=== PATIENT | female | born 1985 | race Caucasian/White ===

== ENCOUNTER 2018-10-26 12:29 | Emergency (ER) | payer SELFPAY ==
[2018-10-26 13:03] VITALS: RESP 18; O2SAT 99
[2018-10-26 13:06] LABS: HCG,QUALITATIVE URINE NEGATIVE (NEGATIVE)
[2018-10-26] MEDS ORDERED: Sodium Chloride 0.9% 1,000 ML IV ONE (13:10)
[2018-10-26 13:11] LABS: SQUAMOUS EPITHIAL 16 /hpf (0-5); URINE BACTERIA RARE (<OCC); URINE BILIRUBIN NEGATIVE (NEGATIVE); URINE BLOOD 1+ (NEGATIVE); URINE CLARITY Hazy (Clear); URINE COLOR Yellow (YELLOW); URINE GLUCOSE (UA) NORMAL (Normal); URINE LEUKOCYTE ESTERASE NEG Leu/uL (Negative); URINE PROTEIN 1+ mg/dL (NEGATIVE); URINE UROBILINOGEN NORMAL mg/dL (0.2-1.0)
[2018-10-26 13:28] LABS: BASO # 0.1 K/uL (0.0-0.2); BASO % 0.6 % (0.0-2.0); EOS % 0.1 % (0.0-4.0); HEMOGLOBIN 12.5 g/dL (11.0-16.0); LYMPH # 1.6 K/uL (1.0-4.3); LYMPH % 13.5 % (20.0-40.0); MEAN CORPUSCULAR HEMOGLOBIN 29.3 pg (27.0-31.0); MEAN CORPUSCULAR HGB CONC 33.3 g/dL (33.0-37.0); MEAN PLATELET VOLUME 10.3 fL (7.2-11.7); MONO # 0.4 K/uL (0.0-0.8); NEUT # 9.9 K/uL (1.8-7.0); NEUT % 82.8 % (50.0-75.0); RBC 4.25 Mil/uL (3.80-5.20); RED CELL DISTRIBUTION WIDTH 13.3 % (11.5-14.5)
[2018-10-26] MEDS ORDERED: Sodium Chloride 0.9% 1,000 ML ONE (13:28)
[2018-10-26 13:34] LABS: HCG,QUALITATIVE URINE NEGATIVE (NEGATIVE)
[2018-10-26 13:40] LABS: ALB/GLOB RATIO 1.5 (1.0-2.1); ALBUMIN 4.8 g/dL (3.5-5.0); ALT/SGPT 22 U/L (9-52); AST/SGOT 22 U/L (14-36); BLOOD UREA NITROGEN 15 mg/dL (7-17); CALCIUM 9.3 mg/dl (8.6-10.4); GFR NON-AFRICAN AMERICAN > 60; LIPASE 27 U/L (23-300)
[2018-10-26 13:41] LABS: SQUAMOUS EPITHIAL 16 /hpf (0-5); URINE BILIRUBIN NEGATIVE (NEGATIVE); URINE BLOOD NEGATIVE (NEGATIVE); URINE CLARITY Hazy (Clear); URINE COLOR Yellow (YELLOW); URINE GLUCOSE (UA) NORMAL (Normal); URINE LEUKOCYTE ESTERASE NEG Leu/uL (Negative); URINE PROTEIN 1+ mg/dL (NEGATIVE); URINE UROBILINOGEN NORMAL mg/dL (0.2-1.0)
--- NOTE | 2018-10-26 13:50 | US ---
HISTORY: Pain COMPARISON: None available. TECHNIQUE: Sonographic evaluation of the abdomen. FINDINGS: LIVER: Measures 17.4 cm in sagittal dimension. Echogenic liver may be seen in setting of hepatic parenchymal disease or fatty infiltration. No focal hepatic mass identified. The main portal vein appears patent with normal directional flow. No intrahepatic bile duct dilatation. GALLBLADDER: No gallstones. No gallbladder wall thickening. Negative sonographic Zamora's sign as assessed by the ramp supervisor. COMMON BILE DUCT: Measures 2 mm. PANCREAS: Not well visualized. RIGHT KIDNEY: Measures 10.5 x 4.0 x 4.9cm. No obstructing calculus or hydronephrosis identified. LEFT KIDNEY: Measures 10.4 x 4.2 x 5.0cm. No obstructing calculus or hydronephrosis identified. SPLEEN: Measures approximately 8.5 cm. AORTA: Limited views appear unremarkable. IVC: Limited views appear unremarkable. OTHER FINDINGS: None. IMPRESSION: Echogenic liver may be seen in setting of hepatic parenchymal disease or fatty infiltration.
--- NOTE | 2018-10-26 14:04 | C.PDOC ---
History Of Present Illness 33 year old female presents to the ED for evaluation of nausea, vomiting and upper abdominal pain which began around one week ago. Patient denies fever, chills. Time Seen by Provider: 10/26/18 12:42 Chief Complaint (Nursing): Abdominal Pain History Per: Patient History/Exam Limitations: no limitations Onset/Duration Of Symptoms: Days (one week ) Current Symptoms Are (Timing): Still Present Location Of Pain/Discomfort: Other (upper abdomen ) Radiation Of Pain To:: None Quality Of Discomfort: "Pain" Associated Symptoms: Nausea, Vomiting. denies: Fever, Chills Additional History Per: Patient Abnormal Vaginal Bleeding: No Past Medical History Reviewed: Historical Data, Nursing Documentation, Vital Signs Vital Signs: Last Vital Signs Temp 98.0 F 10/26/18 12:56 Pulse 102 H 10/26/18 12:56 Resp 18 10/26/18 12:56 BP 117/78 10/26/18 12:56 Pulse Ox 99 10/26/18 12:56 - Medical History PMH: No Chronic Diseases Surgical History: No Surg Hx Family History: States: Unknown Family Hx - Social History Hx Alcohol Use: No Hx Substance Use: No - Immunization History Hx Tetanus Toxoid Vaccination: No Hx Influenza Vaccination: No Hx Pneumococcal Vaccination: No Review Of Systems Constitutional: Negative for: Fever, Chills Gastrointestinal: Positive for: Nausea, Vomiting, Abdominal Pain (upper ) Physical Exam - Physical Exam Appears: Non-toxic, No Acute Distress Skin: Normal Color, Warm, Dry Head: Atraumatic, Normacephalic Eye(s): bilateral: Normal Inspection Oral Mucosa: Moist Neck: Supple Chest: Symmetrical, No Deformity, No Tenderness Cardiovascular: Rhythm Regular, No Murmur Respiratory: Normal Breath Sounds, No Rales, No Rhonchi, No Wheezing Gastrointestinal/Abdominal: Soft, Tenderness (mild, to upper abdomen ), No Guarding, No Rebound Extremity: Normal ROM, Capillary Refill (less than 2 seconds ) Neurological/Psych: Oriented x3, Normal Speech, Normal Cognition ED Course And Treatment - Laboratory Results Result Diagrams: 10/26/18 13:22 10/26/18 13:22 Lab Interpretation: No Acute Changes O2 Sat by Pulse Oximetry: 99 (on RA) Pulse Ox Interpretation: Normal - CT Scan/US No standard instances Other Rad Studies (CT/US): Read By Radiologist, Radiology Report Reviewed CT/US Interpretation: FINDINGS: LIVER: Measures 17.4 cm in sagittal dimension. Echogenic liver may be seen in setting of hepatic parenchymal disease or fatty infiltration. No focal hepatic mass identified. The main portal vein appears patent with normal directional flow. No intrahepatic bile duct dilatation. GALLBLADDER: No gallstones. No gallbladder wall thickening. Negative sonographic Zamora's sign as assessed by the laundry pricing clerk. COMMON BILE DUCT: Measures 2 mm. PANCREAS: Not well visualized. RIGHT KIDNEY: Measures 10.5 x 4.0 x 4.9cm. No obstructing calculus or hydronephrosis identified. LEFT KIDNEY: Measures 10.4 x 4.2 x 5.0cm. No obstructing calculus or hydronephrosis identified. SPLEEN: Measures approximately 8.5 cm. AORTA: Limited views appear unremarkable. IVC: Limited views appear unremarkable. OTHER FINDINGS: None. IMPRESSION: Echogenic liver may be seen in setting of hepatic parenchymal disease or fatty infiltration. Progress Note: Bloodwork, urinalysis, US Abdomen ordered and reviewed. Zofran IVP, Toradol IVP and IV Fluids given. Patient's lab and ultrasounds are unremarkable. On reassessment, patient is resting comfortably, showing no signs of distress and reports an improvement in her symptoms. Patient is stable for discharge and is advised to follow up with her PMD within 1-2 days for further evaluation. Advised to return to the ED if symptoms persist or worsen. Reassessment Condition: Improved Disposition Counseled Patient/Family Regarding: Studies Performed, Diagnosis, Need For Followup, Rx Given - Disposition Referrals: [facility] [Outside] [facility] [Outside] Disposition: HOME/ ROUTINE Disposition Time: 15:00 Condition: IMPROVED Prescriptions: Ondansetron ODT [Zofran ODT] 1 odt PO BID PRN #6 odt PRN Reason: Nausea/Vomiting Instructions: Low Back Pain (DC), Nausea and Vomiting, Adult (DC) Forms: [facility] (Lao) Print Language: TANZANIAN - POA Present On Arrival: None - Clinical Impression Clinical Impression: Abdominal pain, Nausea and vomiting - PA / MERCERIZER MACHINE OPERATOR / Resident Statement MD/DO has reviewed & agrees with the documentation as recorded. - Scribe Statement The provider has reviewed the documentation as recorded by the Scribe (Kaleigh Hebert) All medical record entries made by the Scribe were at my direction and personally dictated by me. I have reviewed the chart and agree that the record accurately reflects my personal performance of the history, physical exam, medical decision making, and the department course for this patient. I have also personally directed, reviewed, and agree with the discharge instructions and disposition.
[2018-10-26 15:09] VITALS: BP 99/64; PULSE 62; TEMP 98.2
== END 2018-10-26 15:07 | disposition home or self-care (01) ==
LOC: C.ER 12:29
DX: R10.9 Unspecified abdominal pain (principal); R11.2 Nausea with vomiting, unspecified
CPT/HCPCS: 76700; 80053; 81001; 83690; 84703; 85025; 96361; 96374; 96375; 99284; J1885; J2405; J7030